=== PATIENT | female | born 1985 | race Hispanic/Latino ===

== ENCOUNTER 2020-06-04 16:45 | Emergency (ER) | payer SELFPAY ==
[2020-06-04] MEDS ORDERED: SODIUM CHLORIDE 0.9% 1000ML 1,000 ML IVS ONE (17:37)
--- NOTE | 2020-06-04 17:57 | RAD ---
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 FINDINGS: 2 x-ray views of the chest (PA and lateral) were obtained, no prior films are available at this time for comparison. The cardiomediastinal silhouette demonstrate to be within normal limits. The heart is not enlarged. The thoracic aorta is unremarkable. The pulmonary vasculature is normal in distribution. Costophrenic angles are sharp. No areas of consolidations or masses are identified. The rest of the soft tissue and bony structures are unremarkable. IMPRESSION: NO ACUTE CARDIOPULMONARY DISEASE IS SEEN. 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
[2020-06-04 18:19] VITALS: O2SAT 99
[2020-06-04] MEDS ORDERED: POTASSIUM CHLORIDE ELIXIR 20 MEQ/15 ML UD PO ONE (18:30)
--- NOTE | 2020-06-04 19:31 | ED.PDOC ---
History of Present Illness - General Chief Complaint: General Stated Complaint: left shoulder/upper back pain Time Seen by Provider: 06/04/20 16:53 Source: patient Exam Limitations: no limitations - History of Present Illness Initial Comments: The patient is a 35-year-old female presenting to the emergency room secondary to persistent discomfort to the left upper chest and left posterior and lateral chest and shoulder since her coronavirus infection about 2-1/2 months ago. She has had significant dyspnea on exertion since that time. She also reports she feels like her heart is going fast at times usually when she goes to stand up. No nausea or vomiting. She is not hypoxic here. She is in a normal sinus rhythm but does develop some mild sinus tachycardia with standing and moving around. Again she does not develop any hypoxia. Range of motion and strength are preserved in the left shoulder. There is diffuse tenderness to palpation along the left upper trapezius muscle. There is also tenderness to palpation over the left rhomboid and the left lateral pectoralis muscle. Lung burt are clear. She is not in any distress. Symptoms are not necessarily getting worse, they are simply not getting better. The patient did apparently have the most severe case of coronavirus and her family at the time. Timing/Duration: constant, other - Months Severity: moderate Improving Factors: nothing Worsening Factors: nothing Associated Symptoms: malaise, shortness of breath - Mainly with exertion Allergies/Adverse Reactions: Allergies NO KNOWN ALLERGY Allergy (Verified 06/04/20 17:00) Home Medications: Ambulatory Orders Cyclobenzaprine HCl [Flexeril] 5 mg PO TID PRN #30 tab 06/04/20 Potassium Chloride [Potassium Chloride ER] 10 meq PO DAILY #30 tab 06/04/20 predniSONE [Prednisone] 20 mg PO DAILY #7 tab 06/04/20 Review of Systems - Review of Systems Constitutional: States: malaise EENTM: States: no symptoms reported Respiratory: States: short of breath - With exertion Cardiology: States: palpitations - Mild Gastrointestinal/Abdominal: States: no symptoms reported Genitourinary: States: no symptoms reported Musculoskeletal: States: no symptoms reported Skin: States: no symptoms reported Neurological: States: no symptoms reported Endocrine: States: no symptoms reported All other Systems: No Change from Baseline Past Medical History (General) - Patient Medical History Hx Stroke: No Hx Congestive Heart Failure: No Hx Diabetes: No - Vaccination History Hx Influenza Vaccination: No - Social History Hx Tobacco Use: No Family Medical History - Family History Mother Family History: Unknown Living Status: Unknown Physical Exam - Physical Exam General Appearance: Alert, Anxious, No apparent distress Eye Exam: right other - Chronic changes, left normal Ears, Nose, Throat: hearing grossly normal, normal pharynx Neck: full range of motion, supple Respiratory: lungs clear, normal breath sounds, no respiratory distress, no accessory muscle use, other - See history of present illness for shoulder and chest wall exam Cardiovascular/Chest: normal peripheral pulses, regular rate, rhythm, no edema Peripheral Pulses: radial,right: 2+, radial,left: 2+ Gastrointestinal/Abdominal: non tender, soft Rectal Exam: deferred Back Exam: no CVA tenderness, no vertebral tenderness, other - See history of present illness Extremity: normal range of motion, no pedal edema, no calf tenderness, normal capillary refill, other - See history of present illness 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, alert, normal mood/affect, oriented x 3 Skin Exam: normal color Comments: Vital Signs - 24 hr 06/04/20 06/04/20 06/04/20 16:56 17:24 17:26 Temperature 97.8 F Pulse Rate [ 102 H 75 92 H Left Brachial] Respiratory 16 Rate Blood Pressure 167/102 112/90 [Left Arm] O2 Sat by Pulse 100 Oximetry 06/04/20 18:00 Temperature Pulse Rate [ 71 Left Brachial] Respiratory 16 Rate Blood Pressure 142/78 [Left Arm] O2 Sat by Pulse 99 Oximetry Progress - Progress Progress: 06/04/20 19:33 The patient is a 35-year-old female presenting to the emergency room secondary to persistent symptoms of discomfort in the left upper chest, shoulder and back since her coronavirus infection several months ago. She is also reported some mild dyspnea on exertion and a mild feeling of palpitations. The patient does develop some mild sinus tachycardia with exertion. No evidence of other arrhythmia. Cardiac enzymes are negative. The patient does have some mild dehydration did receive a liter of IV fluids. This may be causing some increased muscle cramping. Additionally the patient does have hypokalemia which may also be contributing. She will be placed on oral potassium supplement for the next month and does need a repeat level check at that point. She is in the process well-hydrated. The patient does likely have residual inflammation from her coronavirus infection will be placed on a week worth of low-dose oral steroid. Additionally she will be placed on low-dose Flexeril for the muscle soreness. She can take [id number] anti-inflammatories as well with food. I do want her to follow-up with her primary care doctor in a week or 2 for repeat evaluation. ER warnings are given for any worsening. [email or web address] [id number] - Results/Orders Results/Orders: 06/04/20 17:00 EKG STAT Laboratory Results - last 24 hr 06/04/20 06/04/20 06/04/20 17:56 17:56 17:56 WBC 7.3 RBC 4.84 Hgb 14.6 Hct 42.1 MCV 87.0 MCH 30.2 MCHC 34.7 RDW 13.0 Plt Count 266 MPV 7.6 Absolute Neuts (auto) 4.60 Absolute Lymphs (auto) 2.20 Absolute Monos (auto) 0.30 Absolute Eos (auto) 0.10 Absolute Basos (auto) 0.00 Neutrophils % 63.2 Lymphocytes % 30.4 Monocytes % 4.4 Eosinophils % 1.6 Basophils % 0.4 PT 10.2 INR 1.03 PTT (SP) 26.3 D-Dimer, Quantitative < 131.0 L Sodium 137 Potassium 3.1 L Chloride 103 Carbon Dioxide 23 Anion Gap 14.1 BUN 11 Creatinine 0.81 BUN/Creatinine Ratio 13.6 Random Glucose 99 Serum Osmolality 273.2 L Calcium 8.8 Magnesium 1.8 Total Bilirubin 0.4 AST 22 ALT 28 Alkaline Phosphatase 75 Creatine Kinase 136 CK-MB (CK-2) 2.3 CK-MB (CK-2) % Not Reportable Troponin I < 0.02 B-Natriuretic Peptide 19.2 Serum Total Protein 7.7 Albumin 4.1 Globulin 3.6 H Albumin/Globulin Ratio 1.1 Urine Color Urine Appearance Urine pH Ur Specific Freeman Urine Protein Urine Glucose (UA) Urine Ketones Urine Blood Urine Nitrite Urine Bilirubin Urine Urobilinogen Ur Leukocyte Esterase Urine RBC Urine WBC Ur Epithelial Cells Urine Bacteria 06/04/20 18:40 WBC RBC Hgb Hct MCV MCH MCHC RDW Plt Count MPV Absolute Neuts (auto) Absolute Lymphs (auto) Absolute Monos (auto) Absolute Eos (auto) Absolute Basos (auto) Neutrophils % Lymphocytes % Monocytes % Eosinophils % Basophils % PT INR PTT (SP) D-Dimer, Quantitative Sodium Potassium Chloride Carbon Dioxide Anion Gap BUN Creatinine BUN/Creatinine Ratio Random Glucose Serum Osmolality Calcium Magnesium Total Bilirubin AST ALT Alkaline Phosphatase Creatine Kinase CK-MB (CK-2) CK-MB (CK-2) % Troponin I B-Natriuretic Peptide Serum Total Protein Albumin Globulin Albumin/Globulin Ratio Urine Color Yellow Urine Appearance Clear Urine pH 6.0 Ur Specific Freeman 1.010 Urine Protein Negative Urine Glucose (UA) Negative Urine Ketones Negative Urine Blood Trace-lysed H Urine Nitrite Negative Urine Bilirubin Negative Urine Urobilinogen 0.2 Ur Leukocyte Esterase Negative Urine RBC 0-1 Urine WBC 1-3 Ur Epithelial Cells 5-10 Urine Bacteria 1+ Chest x-ray shows no acute pathology. EKG shows normal sinus rhythm at 84 bpm. Mild right axis deviation. Normal R wave progression. Mild left atrial dilation. Normal QT interval. No ST segment or T wave changes indicative of acute ischemia. Departure - Departure Clinical Impression: Hypokalemia, Dehydration, Orthostasis, Physical deconditioning, Muscle spasm Disposition: Discharge to Home or Self Care Condition: Fair Departure Forms: ED Discharge - Pt. Copy, Patient Portal Self Enrollment Instructions: Hypokalemia (DC) Diet: regular diet Activity: increase activity as tolerated Prescriptions: Cyclobenzaprine HCl [Flexeril] 5 mg PO TID PRN #30 tab PRN Reason: Muscle Spasms Potassium Chloride [Potassium Chloride ER] 10 meq PO DAILY #30 tab predniSONE [Prednisone] 20 mg PO DAILY #7 tab Home Medications: Ambulatory Orders Cyclobenzaprine HCl [Flexeril] 5 mg PO TID PRN #30 tab 06/04/20 Potassium Chloride [Potassium Chloride ER] 10 meq PO DAILY #30 tab 06/04/20 predniSONE [Prednisone] 20 mg PO DAILY #7 tab 06/04/20 Additional Instructions: The patient is a 35-year-old female presenting to the emergency room secondary to persistent symptoms of discomfort in the left upper chest, shoulder and back since her coronavirus infection several months ago. She is also reported some mild dyspnea on exertion and a mild feeling of palpitations. The patient does develop some mild sinus tachycardia with exertion. No evidence of other arrhythmia. Cardiac enzymes are negative. The patient does have some mild dehydration did receive a liter of IV fluids. This may be causing some increased muscle cramping. Additionally the patient does have hypokalemia which may also be contributing. She will be placed on oral potassium supplement for the next month and does need a repeat level check at that point. She is in the process well-hydrated. The patient does likely have residual inflammation from her coronavirus infection will be placed on a week worth of low-dose oral steroid. Additionally she will be placed on low-dose Flexeril for the muscle soreness. She can take [id number] anti-inflammatories as well with food. I do want her to follow-up with her primary care doctor in a week or 2 for repeat evaluation. ER warnings are given for any worsening.
[2020-06-04 19:37] VITALS: TEMP 97.4
[2020-06-04 20:02] VITALS: BP 134/71
== END 2020-06-04 20:02 | disposition home or self-care (01) ==
LOC: ER 16:45
DX: E87.6 Hypokalemia (principal); E86.0 Dehydration; M62.838 Other muscle spasm; I95.1 Orthostatic hypotension; R07.9 Chest pain, unspecified; Z86.19 Personal history of other infectious and parasitic diseases
CPT/HCPCS: 36415; 71046; 80053; 81001; 82550; 82553; 83735; 83880; 84484; 85025; 85379; 85610; 85730; 93005; J7030